=== PATIENT | male | born 1980 | race Caucasian/White ===

== ENCOUNTER 2017-06-23 14:57 | Emergency (ER) | payer OTHER ==
[2017-06-23] MEDS ORDERED: MOTRIN 600 MG PO ONE (15:51)
--- NOTE | 2017-06-23 15:55 | ERPHSYRPT ---
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 Pain in the left hand. No other injuries. No N/T/W. No neck or back pain. Pain is severe. Left hand is swollen. Occurred: just prior to arrival Extremities Pain Location: hand: left Allergies/Adverse Reactions: Sulfa (Sulfonamide Antibiotics) Allergy (Verified 06/23/17 16:03) - Review of Systems Constitutional: No Symptoms Musculoskeletal: Joint Pain (left hand), No Back Pain, No Neck Pain Skin: No Rash Neurological: No Focal Weakness, No Headache, No Parasthesia - Past Medical History Pertinent Past Medical History: No - Social History Patient Lives Alone: No - Nursing Vital Signs Nursing Vital Signs: Initial Vital Signs Temperature 98.5 F 06/23/17 15:52 Pulse Rate 114 H 06/23/17 15:52 Respiratory Rate 18 06/23/17 15:52 Blood Pressure 138/83 06/23/17 15:52 O2 Sat by Pulse Oximetry 97 06/23/17 15:52 Pain Scale Pain Intensity 8 - Physical Exam General Appearance: alert Eyes, Ears, Nose, Throat Exam: normal ENT inspection, moist mucous membranes Neck Exam: normal inspection, non-tender, supple Cardiovascular/Respiratory Exam: normal breath sounds, regular rate/rhythm Abdominal Exam: non-tender, soft Shoulder Exam: normal inspection, non-tender Elbow/Forearm Exam: normal inspection, non-tender Wrist Exam: normal inspection, non-tender Hand Exam: limited ROM, swelling (with tenderness mid left hand), No laceration Neuro/Tendon Exam: normal sensation, normal motor functions Mental Status Exam: alert, oriented x 3, cooperative Skin Exam: warm, dry, No rash - Course Nursing assessment & vital signs reviewed: Yes - Radiology Exams left hand X-ray Interpretation: Teleradiologist Report (base 5th fracture) Ordered Tests: Active Orders 24 hr Category Date Time Status Cold Application STAT Care 06/23/17 15:51 Active Splint STAT Care 06/23/17 16:13 Active HAND (MINIMUM 3 VIEWS) Stat Exams 06/23/17 15:52 Completed Medication Summary Discontinued Medications Generic Name Dose Route Start Last Admin Trade Name Freq PRN Reason Stop Dose Admin Ibuprofen 600 mg 06/23/17 15:51 Motrin 600 Mg PO 06/23/17 15:52 STAT ONE - Progress Progress Note: 06/23/17 16:44 Pt requests [facility]. RN called and Dr Roberts office will call pt with appt. Splint, norco, instr given. Counseled pt/family regarding: diagnosis, need for follow-up, rad results - Departure Time of Disposition: 16:44 Departure Disposition: Home Clinical Impression: Fracture of metacarpal base of left hand, closed Qualifiers: Metacarpal bone: fifth Fracture healing: with routine healing Condition: Stable Critical Care Time: No Referrals: MÓNICA BACA [Primary Care Provider] - PANFILO ROBERTS MD [NON-STAFF PHY W/O PRIVILEGES] - Instructions: Hand Fracture (DC) Additional Instructions: Splint. Rx norco- no driving or operating machinery. Dr Roberts will call for appointment. If you do not hear from them by tomorrow call their office. Ice, rest, elevate. Prescriptions: Hydrocodone Bit/Acetaminophen [[place] 5-325 Tablet] 1 each PO Q6H PRN PRN #15 tablet MDD 4 PRN Reason: Pain
[2017-06-23 16:02] VITALS: BP 138/83; PULSE 114; O2SAT 97
--- NOTE | 2017-06-23 16:20 | XRAY ---
Indication: Pain following punching injury. Comparison: None 3 views of the left hand demonstrates mildly displaced comminuted fracture involving the base of the 5th metacarpal with intra-articular extension and adjacent soft tissue swelling. No other bony, articular, or soft tissue abnormalities.
[2017-06-23] MEDS ORDERED: MOTRIN 600 MG ONE (16:53)
== END 2017-06-23 17:09 | disposition home or self-care (01) ==
LOC: ED 14:57
PROC: 2W3DX1Z Immobilization of Left Lower Arm using Splint (ICD-10-PCS; principal; 2017-06-23)
DX: S62.317A Displaced fracture of base of fifth metacarpal bone, left hand, initial encounter for closed fracture (principal); W22.01XA Walked into wall, initial encounter
CPT/HCPCS: 29126; 73130; 99283; A9270-GY